=== PATIENT | male | born 1995 | race Hispanic/Latino ===

== ENCOUNTER 2024-06-09 08:32 | Emergency (ER) | payer SELFPAY ==
[~2024-06-09] VITALS: Ht 188 cm; Wt 97.5 kg
[2024-06-09 08:38] VITALS: PULSE 87; RESP 18; TEMP 97.7; O2SAT 100
== END 2024-06-09 10:51 | disposition home or self-care (01) ==
LOC: ER 08:37
DX: R31.9 Hematuria, unspecified (principal); R10.9 Unspecified abdominal pain; S62.397A Other fracture of fifth metacarpal bone, left hand, initial encounter for closed fracture; W51.XXXA Accidental striking against or bumped into by another person, initial encounter; Z76.5 Malingerer [conscious simulation]
CPT/HCPCS: 99282